=== PATIENT | male | born 1995 | race Caucasian/White ===

== ENCOUNTER 2021-03-09 12:51 | Emergency (ER) | payer SELFPAY ==
[2021-03-09 13:09] VITALS: BP 125/80; PULSE 103; RESP 17; TEMP 36.8; O2SAT 92; BMI 21.7
--- NOTE | 2021-03-09 13:37 | W.ED.EXTPRO ---
HPI - Extremity Problem General: Chief complaint: Extremity Problem,Nontraumatic Stated complaint: BACK/HIP PAIN X 1 WK Time Seen by Provider: 03/09/21 13:17 History of Present Illness: HPI Narrative: Patient with pain from low back down right buttock times couple weeks. Not been able to do much the last week due to pain. Has had steroid shot steroid pills and muscle relaxers. Remembers it injuring at work picking something up when he twisted. Denies any bowel or bladder problems denies any pain or numbness that goes down extremity. MD Complaint: other (Back pain) Associated symptoms: Deny chest pain, fever(s) or rash Review of Systems Const: Denies: fever(s), chills or body aches Eyes: Denies: change in vision or blurry vision ENMT: Denies: throat pain or nasal congestion Card: Denies: chest pain or dyspnea on exertion Resp: Denies: dyspnea, productive cough or non-productive cough GI: Denies: abdominal pain, nausea or vomiting : Denies: difficulty urinating Musc: Reports: back pain (Pain from low back right side down through buttock. Present times couple w) and other (Patient has MRI scheduled but is 3 weeks out[address] Has seen Dr. Trujillo); Denies: extremity pain Skin/Breast: Denies: rash Neuro: Denies: headache(s) Psych: Denies: anxiety or depression Karel/Lymph: Denies: easy bruising Physical Exam Const: COMMON NORMALS: no acute distress GENERAL APPEARANCE: cooperative Back/Pelvis: PELVIS: Yes buttock abnormal Buttock abnormal laterality: right (Pain over SI joint extend down mid buttock area) OTHER: Able to ambulate and bend without difficulty., Pain with sitting. Psych: COMMON NORMALS: mental status grossly normal Course Vital Signs: Vital signs: Vital Signs Temperature 98.2 F 03/09/21 13:09 Pulse Rate 104 H 03/09/21 13:46 Respiratory Rate 18 03/09/21 13:46 Blood Pressure 121/84 03/09/21 13:46 Pulse Oximetry 98 03/09/21 13:46 MDM - Extremity (Nontraumatic) MDM Narrative: Medical decision making narrative: Right-sided sciatica low back pain. Patient follow-up primary care provider see about possibly getting MRI on a self-pay basis scheduled. Discharge Plan Discharge Patient Disposition: Home Clinical Impression: Sciatica of right side Condition: Stable Prescriptions: New tramadol 50 mg tablet 50 mg PO TID PRN (Reason: pain) Qty: 14 RF: 0 Voltaren Arthritis Pain 1 % gel 4 g topical QID Qty: 100 RF: 0 No Action naproxen 500 mg tablet 500 mg PO BID 30 Days Qty: 60 RF: 0 cyclobenzaprine 5 mg tablet 5 mg PO TID PRN (Reason: muscle spasm) 30 Days Qty: 30 RF: 0 prednisone 20 mg tablet 20 mg PO DAILY Qty: 5 RF: 0 Discharge Orders: Discharge ED (Routine); Ordered 03/09/21 Ordered By: Nelson Kim Referrals: Skinny Mary MD [Primary Care Provider] - Discharge Diet: Usual diet Discharge Activity: Limit activity as instructed Patient Instructions: Sciatica (ED) Activity Restrictions/Additional Instructions: Follow-up with medical provider as directed. Take medications as prescribed. Return to the ER or your medical provider if condition worsens. Please read and understand discharge instructions. If any questions ask please. Can buy Voltaren cream [id number]. Apply ice to area since that helps. No lifting over 10 pounds for next 2 to 4 weeks. Follow-up with Dr. Sanchez and see about getting a self-pay MRI scheduled. Coding Level of Care Code ED Washing Machine Repairer for Jean Fwd Exam Expanded Problem Focused
[2021-03-09 13:46] VITALS: BP 121/84; PULSE 104; RESP 18; O2SAT 98
== END 2021-03-09 13:47 | disposition home or self-care (01) ==
PROVIDERS: Emergency Provider Nurse Practitioner Family; PCP Family Medicine
DX: M54.41 Lumbago with sciatica, right side (principal)
CPT/HCPCS: 99281

== ENCOUNTER 2022-11-05 15:18 | Emergency (ER) | payer SELFPAY ==
[2022-11-05 15:32] VITALS: BP 117/72; PULSE 77; RESP 16; TEMP 36.5; O2SAT 98; BMI 23.0
--- NOTE | 2022-11-05 15:48 | ED_ITS ---
Documented by User: [email or web address] Vu 11/09/22 07:15 HPI - Extremity Injury (Lower) General: Chief Complaint: Extremity Injury, Lower Stated Complaint: foot injury Time Seen by Provider: 11/05/22 15:41 Source: patient Mode of arrival: wheelchair Limitations: no limitations History of Present Illness: Patient is a 27-year-old male who presents to ED today for evaluation of a right foot laceration that he sustained after cutting it with a metal grader. He states last tetanus was approximately 2 years ago. He states he was seen at urgent care and instructed to come to the ED for further evaluation. MD complaint: foot injury Onset (ago): hour(s) Injury: Right: foot Type of Injury: laceration Place: home Severity: moderate Relieving factors: nothing Exacerbating factors: weight bearing, movement and palpation Context: other (laceration) Associated symptoms: Reports no associated symptoms Other symptoms: none Treatments prior to arrival: bandage Review of Systems Musc: Reports: extremity pain (R foot); Denies: joint pain or joint swelling Skin/Breast: Reports: other (laceration R foot) Neuro: Denies: numbness in extremities or sensory changes Physical Exam Const: COMMON NORMALS: no acute distress, average body habitus, patient oriented x3, no limitations, healthy appearing, alert and well nourished Extremity: COMMON NORMALS: full ROM and capillary refill normal GENERAL: Yes normal exam except as noted RIGHT LOWER EXTREMITY: Yes foot & digits (anterior tibialis tendon visualized and tendon/sheath appear un-interrupted) Right foot and digits: Yes inspection (large 7.5 cm laceration to dorsal proximal R foot; no bleeding), Yes ROM (normal), Yes neurovascular exam (normal) and Yes other (DP/PT pulses dopplered and present) Neuro: COMMON NORMALS: patient oriented x3, moves all extremities, no focal motor deficits and no sensory deficits noted SENSORIUM/ORIENTATION: Yes alert Skin: NARRATIVE SKIN EXAM: see extremity exam Course ED course: Wound was irrigated. Local anesthetic was infiltrated by myself. Wound was then re-irrigated copiously. XR showing no bony involvement but does have debris in the wound-most of this was felt to have been irrigated out. I can visualize patient's anterior tibialis tendon but the sheath and tendon appear intact. I did go ahead and speak to Dr. Mishra who will graciously evaluate patient in his office tomorrow. Laceration repair and patient care will be transferred to Fallon Bernardo, [facility] at shift change. ES Consultations: Consultation #1: Dr. Mishra-recommends copious irrigation and closure and will see in office tomorrow Vital Signs: Vital signs: Vital Signs Temperature 97.7 F 11/05/22 15:32 Pulse Rate 77 11/05/22 15:32 Respiratory Rate 16 11/05/22 15:32 Blood Pressure 117/72 11/05/22 15:32 Pulse Oximetry 98 11/05/22 15:32 Oxygen Delivery Me thod Room Air 11/05/22 15:32 MDM - Extremity Injury (Lower) Lab Data Radiology Impressions Foot X-Ray 11/05/22 16:01 IMPRESSION: 1. Soft tissue laceration overlying the navicular. No evidence of acute fracture or avulsion. 2. Small amount of nonspecific faint radiopaque debris in the laceration defect. 3. No other suspicious findings. Discharge Plan Discharge Patient Disposition: Home Clinical Impression: Laceration of dorsum of right foot Condition: Stable Prescriptions: New hydrocodone-acetaminophen 5-325 mg tablet 1 tab PO Q6H PRN (Reason: pain) Qty: 14 0RF cephalexin 500 mg capsule 500 mg PO Q6H 7 Days Qty: 28 0RF No Action naproxen 500 mg tablet 500 mg PO BID 30 Days Qty: 60 0RF cyclobenzaprine 5 mg tablet 5 mg PO TID PRN (Reason: muscle spasm) 30 Days Qty: 30 0RF prednisone 20 mg tablet 20 mg PO DAILY Qty: 5 0RF tramadol 50 mg tablet 50 mg PO TID PRN (Reason: pain) Qty: 14 0RF Voltaren Arthritis Pain 1 % gel 4 g topical QID Qty: 100 0RF Rx Instructions: apply to sore area Discharge Orders: Discharge ED (Routine); Ordered 11/05/22 Ordered By: [facility] Referrals: Nico Mishra DPM [Physician] - Skinny Mary MD [Primary Care Provider] - Discharge Diet: Usual diet Discharge Activity: Increase activity as tolerated Patient Instructions: Laceration (DC) Activity Restrictions/Additional Instructions: Dr. Mishra will see you in his office tomorrow at 3:00 for further evaluation. Contact his office in the morning to confirm this appointment. Keep wound clean and dry. Monitor closely for signs of infection. Return in 7 to 10 days for suture removal. Follow-up with primary care provider. Coding Level of Care Code ED Theatrical Dresser for Mukeshg Fwd Documented by User: [email or web address] Gusman 11/06/22 02:44 HPI - Extremity Injury (Lower) General: Chief Complaint: Extremity Injury, Lower Stated Complaint: foot injury Time Seen by Provider: 11/05/22 15:41 Physical Exam Extremity: RIGHT LOWER EXTREMITY: Yes foot & digits Right foot and digits: Yes inspection (large 3.5 in laceration to dorsal proximal R foot; no bleeding) Procedures Laceration right foot: Site: lower extremity Side (If applicable): right Size (cm): 7.75 Description: linear and contaminated Depth: simple, single layer Local Anesthetic: lidocaine 1% and with epi Pre-repair: wound explored, irrigated extensively, deep structures intact and extensive debridement Skin layer closed with: nylon Size (cm): 4-0 Number of sutures: 3 Technique: simple, interrupted and running (3 simple interrupted sutures and then running suture) Subcutaneous layer closed with: vicryl Size: 4-0 Number of sutures: 3 Technique: simple, interrupted Course Vital Signs: Vital signs: Vital Signs Temperature 97.7 F 11/05/22 15:32 Pulse Rate 77 11/05/22 15:32 Respiratory Rate 16 11/05/22 15:32 Blood Pressure 117/72 11/05/22 15:32 Pulse Oximetry 98 11/05/22 15:32 Oxygen Delivery Me thod Room Air 11/05/22 15:32 MDM - Extremity Injury (Lower) Medical Decision Making Laceration. Patient has large laceration to the left dorsal foot. X-ray was done does not show any acute osseous deformity however there is small amount of radiopaque debris's noted. Local anesthetic was administered by Aliza Brock wound irrigation was done. I assumed care of patient after wound irrigation was completed. Laceration was repaired see laceration details. Patient tolerated well. Prophylactic antibiotic prescribed. Aliza have prescribed patient pain control however patient refused pain control at this time states that he does not like to take that kind of medication. Prescription was shredded. Aliza had already speaking with podiatry and patient has a follow-up 10/06/2022 scheduled. Patient advised of aftercare. Take antibiotics as directed. Monitor closely fo r signs of infection. Follow-up with podiatry as directed. Return to the ER as needed for any new or worsening symptoms Lab Data Radiology Impressions Foot X-Ray 11/05/22 16:01 IMPRESSION: 1. Soft tissue laceration overlying the navicular. No evidence of acute fracture or avulsion. 2. Small amount of nonspecific faint radiopaque debris in the laceration defect. 3. No other suspicious findings. Discharge Plan Discharge Patient Disposition: Home Clinical Impression: Laceration of dorsum of right foot Condition: Stable Prescriptions: New hydrocodone-acetaminophen 5-325 mg tablet 1 tab PO Q6H PRN (Reason: pain) Qty: 14 0RF cephalexin 500 mg capsule 500 mg PO Q6H 7 Days Qty: 28 0RF No Action naproxen 500 mg tablet 500 mg PO BID 30 Days Qty: 60 0RF cyclobenzaprine 5 mg tablet 5 mg PO TID PRN (Reason: muscle spasm) 30 Days Qty: 30 0RF prednisone 20 mg tablet 20 mg PO DAILY Qty: 5 0RF tramadol 50 mg tablet 50 mg PO TID PRN (Reason: pain) Qty: 14 0RF Voltaren Arthritis Pain 1 % gel 4 g topical QID Qty: 100 0RF Rx Instructions: apply to sore area Discharge Orders: Discharge ED (Routine); Ordered 11/05/22 Ordered By: Gina Chang Referrals: Nico Mishra DPM [Physician] - Skinny Mary MD [Primary Care Provider] - Discharge Diet: Usual diet Discharge Activity: Increase activity as tolerated Patient Instructions: Laceration (DC) Activity Restrictions/Additional Instructions: Dr. Misrha will see you in his office tomorrow at 3:00 for further evaluation. Contact his office in the morning to confirm this appointment. Keep wound clean and dry. Monitor closely for signs of infection. Return in 7 to 10 days for suture removal. Follow-up with primary care provider. Coding Level of Care Code ED Theatrical Dresser for Chg Fwchrista
--- NOTE | 2022-11-05 16:01 | XR_ITS ---
WS: [id number] FOOT RIGHT TECHNIQUE: 3 views of the right foot CLINICAL INFORMATION: trauma/laceration COMPARISON: None. FINDINGS: Prominent soft tissue laceration overlying the navicular. Tiny punctate foci of faint radiopaque debr is in the laceration defect nonspecific. No visualized navicular fracture or avulsion. No other suspi cious findings. XR/XR foot RT min 3V* [id number] IMPRESSION: 1. Soft tissue laceration overlying the navicular. No evidence of acute fractu re or avulsion. 2. Small amount of nonspecific faint radiopaque debris in the laceration defec t. 3. No other suspicious findings.
[2022-11-05] MEDS: ceFAZolin 1,000 MG in water for injection-sterile 2.5 ML 1 MG IM (17:19)
--- NOTE | 2022-11-06 08:44 | DCPLANNER ---
Addendum entered by Cata Reddy 11/11/22 11:25: Patient had a follow up appointment scheduled with ortho - patient did not attend appointment. Addendum entered by Cata Reddy 11/06/22 10:29: Patient has a follow up appointment scheduled for Sunday, November 06, 2022 at 3:[address] Mishra at ortho. Original Note: environmental research project manager had message to schedule a follow up appointment for patient with podiatry. environmental research project manager sent patients information to the front office staff at podiatry. Patients information will be printed and reviewed. Clinic will call patient with appointment information.
== END 2022-11-05 18:22 | disposition home or self-care (01) ==
PROVIDERS: Emergency Provider Physician Assistant; PCP Family Medicine
DX: S91.311A Laceration without foreign body, right foot, initial encounter (principal); W29.8XXA Contact with other powered hand tools and household machinery, initial encounter
CPT/HCPCS: 12044; 73630; 96372; 99284; J0690